=== PATIENT | female | born 1965 | race Caucasian/White ===

== ENCOUNTER → 2016-07-22 | Day surgery (SDC) | payer OTHER ==
[~2016-07-22] MED LIST: AMOX875T PO; BUPIVACAINE HCL PF 0.75% 30 ML VIAL ONE; CALCCHW9 PO; CELE40TA PO; EPINEPHrine HCL (1:1000) 30 MG/30 ML VIAL ONE; FLON0.053; LACTATED RINGER'S 1000 ML INJ 1,000 ML ONE; LIDOCAINE 1.5%/EPINEPHrine 1:200,000 PF SOLN 30 ML AMP ONE; LISI-360 PO; META0.52 PO; MIDAZOLAM HCL 5 MG/ML VIAL (1 ML) ONE; MULT1TAB; OCUVTAB PO; OFLO.3%A RIGHT EAR; ONDANSETRON HCL 4 MG/2 ML VIAL IV PUSH ONE; PRIL20CA PO; PROPOFOL 200 MG/20 ML AMP IV ONE; VARE1 PO; VARE1PAK3 PO; VITA20003 PO; ceFAZolin 2 GM PREMIX 50 ML ONE
--- NOTE | 2016-07-24 21:39 | MP ---
cc: RAS CALDWELL DATE OF SURGERY 07/22/16 PREOPERATIVE DIAGNOSIS 1. Left shoulder rotator cuff tear 2. Left shoulder impingement syndrome 3. Left shoulder biceps tendon tear 4. Left shoulder labral tear. POSTOPERATIVE DIAGNOSES 1. Left shoulder rotator cuff tear 2. Left shoulder impingement syndrome 3. Left shoulder biceps tendon tear 4. Left shoulder labral tear. PROCEDURE 1. Left shoulder arthroscopic rotator cuff repair 2. Left shoulder arthroscopic subacromial decompression 3. Left shoulder arthroscopic extensive debridement of labrum and biceps 4. Left shoulder open biceps tenodesis. SURGEON Dr. Tamar Caldwell [employer] TECHNICIAN JULIA Avila ANESTHESIA General with an interscalene block. REVIEW OF SYSTEMS Less than 50 mL. COMPLICATIONS None. IMPLANTS USED Arthrex JUSTIFICATION This patient is a 49-year-old female who injured her left shoulder. She had persistence of progressive pain and weakness in regards to her left shoulder and arm with failure of conservative treatment. Clinical exam as well as MRI confirmed the above-named findings. The patient was counseled as to risks, benefits and alternatives of the above named proposed surgical procedure. She did wish to proceed with surgery. PROCEDURE IN DETAIL Written consent was obtained. The patient identified by name. A scalene block anesthesia administered left upper extremity by the anesthesiologist. The patient was taken to the operating room and general anesthesia was administered as well as 2 grams of IV Ancef. The patient was then carefully transferred to the operating room table. She was placed in a right lateral decubitus position. An lateral arm roll was placed. All bony prominences and pressure points were well padded. The patient's neck was carefully monitored and kept neutral. An arthroscopic arm wroley was gently applied to the left upper extremity with 10 pounds of traction placed. Left shoulder prepped and draped isopropyl alcohol, Hibiclens solution and DuraPrep solution. After a time-out was performed, a standard posterior and anterior glenohumeral arthroscope portal was established. The joint revealed evidence of severe labral tearing along the anterior superior posterior portions. An arthroscopic shaver was introduced from anterior portal. Extensive debridement of the labrum was performed just from the 3 o'clock position at the 12 o'clock position back down to the 9 o'clock position. There was evidence of a full-thickness tear of the biceps tendon which was also debrided along the long head insertion onto the supra glenoid tubercle. Minimal chondromalacia of the glenohumeral joint was noted. Evidence of a massive full-thickness rotator cuff tear was also visualized. Attention was turned to the subacromial space. there was evidence of severe impingement bursitis. An arthroscopic shaver was introduced into lateral portal. A subacromial decompression was performed. The shaver was used to per form a bursectomy. An acromioplasty was performed and the cautery device was used to release the coracoacromial ligament. The greater tuberosity was debrided and decorticated in preparation for rotator cuff tendon repair. At this point, two Arthrex 4.75 mm bio swivel lock anchors were inserted along the medial row. The Arthrex scorpion device was used to shuttle #2 fiber tape suture through the anterior posterior portion of the torn tendon. The anterior portion of the tendon was very, very thin and a very poor quality tissue. A #2 fiber link suture was placed along the anterior posterior portions of the tear as well. An Arthrex double row speed bridge construct was then created with insertion of a lateral anchor along the posterior portion of the anterior portion of the greater tuberosity. After appropriate tensioning of the sutures and insertion of lateral row anchors, the rotator cuff tendon tear was probed and noted to have good stability and fixation. The patient did have significant osteoporosis of bone and I downsized the punch size in order to obtain adequate purse string fixation after insertion of the lateral row anchors. The anchors were tested manually with tension and no evidence of pullout. At this point, the arthroscopic portion of the surgery was concluded. Attention was turned the anterior aspect of left shoulder. A longitudinal incision was made in line with the anterior portions of the shoulder. The deltopectoral interval was explored. The conjoined tendon was retracted in medial direction, deltoid in a lateral direction and identification of the bicipital groove was achieved. The biceps tendon was identified within the groove. #2 FiberWire whip stitch was placed within the tendon. At this point, a guidewire was drilled within the intertubercular groove and this followed by drilling with a 6.5-mm reamer. Subsequently an Arthrex 6.25 bio swivel lock anchor was then inserted into the intertubercular groove after sutures from the tendon were placed through the eyelet of the anchor. The tendon was placed into the tunnel and the anchor was inserted. There was good purchase and fixation. At this point. the deltopectoral interval was closed with 3-0 Vicryl suture. Subcutaneous layer with 3-0 Vicryl suture. The skin incision was closed with Dermabond as well as 3-0 Prolene. Sterile dressings were applied. The patient placed in sling and swath immobilizer. She tolerated the procedure well. No intraoperative complications noted. MD ARUN Hewitt/ /3:13 PM /9:15 PM
== END | disposition home or self-care (01) ==
LOC: ESDC 10:51
PROVIDERS: ATTEND Orthopaedic Surgery Sports Medicine
DX: M75.122 Complete rotator cuff tear or rupture of left shoulder, not specified as traumatic (principal); M75.42 Impingement syndrome of left shoulder; S46.212A Strain of muscle, fascia and tendon of other parts of biceps, left arm, initial encounter; S43.492A Other sprain of left shoulder joint, initial encounter
CPT/HCPCS: 01630; 01716; 01991; 23430; 29823; 29826; 29827; 64417; C1713; J0171; J0690; J2250; J2405; J3010; J7120